=== PATIENT | male | born 1940 | race Caucasian/White ===

== ENCOUNTER 2023-02-11 19:24 | Emergency (ER) | payer OTHER ==
[~2023-02-11] VITALS: Ht 170.2 cm; Wt 71.7 kg
[2023-02-11] MEDS ORDERED: ONDANSETRON ODT 4 MG TAB.RAPDIS SL ONE (20:00)
[2023-02-11] MEDS ORDERED: OXYCODONE/APAP 5-325 MG TABLET PO ONE (20:00)
[2023-02-11] MEDS ORDERED: LIDOCAINE 1%-EPI 1:100,000 20 ML VIAL IJ ONE (20:00)
[2023-02-11] MEDS ORDERED: TDAP DIPH,PERTUSS,TET VAC/PF 0.5 ML DISP.SYRIN IM ONE ×2 (20:00→20:18)
[2023-02-11] MEDS ORDERED: CEphaleXIN 500 MG CAPSULE PO ONE (20:00)
[2023-02-11] MEDS ORDERED: SODIUM BICARBONATE 4.2 % (NEUT) 5 ML VIAL TP ONE (20:00)
[2023-02-11] MEDS ORDERED: LIDOCAINE 1%-EPI 1:100,000 20 ML VIAL ONE (20:17)
[2023-02-11] MEDS ORDERED: SODIUM BICARBONATE 4.2 % (NEUT) 5 ML VIAL ONE (20:17)
[2023-02-11] MEDS ORDERED: ONDANSETRON ODT 4 MG TAB.RAPDIS ONE (20:19)
[2023-02-11] MEDS ORDERED: OXYCODONE/APAP 5-325 MG TABLET ONE (20:20)
[2023-02-11] MEDS ORDERED: CEphaleXIN 500 MG CAPSULE ONE (20:20)
[2023-02-11] MEDS ORDERED: HYDROMORPHONE 1 MG/1 ML DISP.SYRIN IM ONE (22:15)
[2023-02-11] MEDS ORDERED: HYDROMORPHONE 1 MG/1 ML DISP.SYRIN ONE (22:24)
[2023-02-11] MEDS ORDERED: HYDR-3980 PO (23:12)
[2023-02-11] MEDS ORDERED: ONDA4TAB5 PO (23:12)
[2023-02-11] MEDS ORDERED: CEPH500T PO (23:12)
[2023-02-11 23:59] VITALS: BP 129/90; TEMP 98; O2SAT 98
== END 2023-02-11 23:30 | disposition home or self-care (01) ==
LOC: ER 19:27
DX: S01.81XA Laceration without foreign body of other part of head, initial encounter (principal); S01.511A Laceration without foreign body of lip, initial encounter; M25.532 Pain in left wrist; M79.642 Pain in left hand; M79.641 Pain in right hand; Z79.899 Other long term (current) drug therapy; W01.0XXA Fall on same level from slipping, tripping and stumbling without subsequent striking against object, initial encounter; Y93.89 Activity, other specified; Y92.89 Other specified places as the place of occurrence of the external cause; Y99.8 Other external cause status
CPT/HCPCS: 99285; 70450; 73090 ×2; 73130 ×2; 70486; 90715; 96372; 90471; 29125; 12004; J3490 ×2; J1170; A4663; Q0162